=== PATIENT | female | born 1990 | race African-American/Black ===

== ENCOUNTER 2017-01-25 13:37 | Emergency (ER) | payer OTHER ==
[2017-01-25] MEDS ORDERED: IBUPROFEN 800 MG TABLET PO ONE (14:26)
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
[2017-01-25 15:36] VITALS: BP 121/79
== END 2017-01-25 15:34 | disposition home or self-care (01) ==
LOC: ER 13:37
DX: S83.91XA Sprain of unspecified site of right knee, initial encounter (principal); M54.5 Low back pain; M25.561 Pain in right knee; V49.50XA Passenger injured in collision with unspecified motor vehicles in traffic accident, initial encounter; I10 Essential (primary) hypertension; F17.200 Nicotine dependence, unspecified, uncomplicated
CPT/HCPCS: 99283